=== PATIENT | female | born 1990 | race American Indian/Alaskan Native ===

== ENCOUNTER 2017-02-05 11:54 | Emergency (ER) | payer MEDICAID ==
--- NOTE | 2017-02-05 14:22 | Emergency Department Report ---
- General Chief complaint: Skin/Abscess/Foreign Body Stated complaint: POSS SPIDER BITE LT ARM /MOUTH SWELLING Time Seen by Provider: 02/05/17 13:52 Source: patient Mode of arrival: Ambulatory Limitations: No Limitations - History of Present Illness Initial comments: 26-year-old female past medical history none presents with complaint of left wrist skin redness and discomfort 2 days. Patient states she may have been bitten on skin in this area by a spider at home. Patient denies any fevers chills nausea or vomiting. Denies any direct trauma to the wrist. Visible redness overlying the distal left forearm. No obvious or overt signs of abscess formation on skin. Also states that she has noticed a small area of redness at the base of her right index finger. Areas affected are on dorsal sides MD complaint: insect bite/sting, discoloration Onset/Timin -: days(s) Location: LUE, R hand Severity: mild Severity scale (0 -10): 4 Quality: burning Consistency: intermittent - Related Data Previous Rx's Medication Instructions Recorded Last Taken Type Cephalexin [Keflex] 500 mg PO BID #14 capsule 02/05/17 Unknown Rx Ibuprofen [Motrin] 600 mg PO Q8H PRN #25 tablet 02/05/17 Unknown Rx Sulfamethoxazole/Trimethoprim 1 each PO BID #14 tablet 02/05/17 Unknown Rx [Bactrim DS TAB] Allergies Allergy/AdvReac Type Severity Reaction Status Date / Time No Known Allergies Allergy Unverified 02/05/17 12:26 Abscess Boil HPI - HPI Chief Complaint: Skin/Abscess/Foreign Body Stated Complaint: POSS SPIDER BITE LT ARM /MOUTH SWELLING Time Seen by Provider: 02/05/17 13:52 Home Medications: Previous Rx's Medication Instructions Recorded Last Taken Type Cephalexin [Keflex] 500 mg PO BID #14 capsule 02/05/17 Unknown Rx Ibuprofen [Motrin] 600 mg PO Q8H PRN #25 tablet 02/05/17 Unknown Rx Sulfamethoxazole/Trimethoprim 1 each PO BID #14 tablet 02/05/17 Unknown Rx [Bactrim DS TAB] Allergies/Adverse Reactions: Allergies Allergy/AdvReac Type Severity Reaction Status Date / Time No Known Allergies Allergy Unverified 02/05/17 12:26 ED Review of Systems ROS: Stated complaint: POSS SPIDER BITE LT ARM /MOUTH SWELLING Other details as noted in HPI Constitutional: denies: chills, fever Eyes: denies: eye pain, eye discharge, vision change ENT: denies: ear pain, throat pain Respiratory: denies: cough, shortness of breath, wheezing Cardiovascular: denies: chest pain, palpitations Endocrine: no symptoms reported Gastrointestinal: denies: abdominal pain, nausea, diarrhea Genitourinary: denies: urgency, dysuria, discharge Musculoskeletal: denies: back pain, joint swelling, arthralgia Skin: as per HPI, change in color (left distal wrist skin redness/erythema). denies: rash, lesions Neurological: denies: headache, weakness, paresthesias Psychiatric: denies: anxiety, depression Hematological/Lymphatic: denies: easy bleeding, easy bruising ED Past Medical Hx - Past Medical History Previous Medical History?: No - Surgical History Past Surgical History?: No Additional Surgical History: neuphrological surgery as child unsure - Social History Smoking Status: Never Smoker Substance Use Type: None - Medications Home Medications: Home Medications Medication Instructions Recorded Confirmed Last Taken Type Cephalexin [Keflex] 500 mg PO BID #14 capsule 02/05/17 Unknown Rx Ibuprofen [Motrin] 600 mg PO Q8H PRN #25 tablet 02/05/17 Unknown Rx Sulfamethoxazole/Trimethoprim 1 each PO BID #14 tablet 02/05/17 Unknown Rx [Bactrim DS TAB] ED Physical Exam - General Limitations: No Limitations General appearance: alert, in no apparent distress - Head Head exam: Present: atraumatic, normocephalic - Eye Eye exam: Present: normal appearance, PERRL, EOMI - ENT ENT exam: Present: mucous membranes moist - Neck Neck exam: Present: normal inspection - Respiratory Respiratory exam: Present: normal lung sounds bilaterally. Absent: respiratory distress - Cardiovascular Cardiovascular Exam: Present: regular rate, normal rhythm. Absent: systolic murmur, diastolic murmur, rubs, gallop - GI/Abdominal GI/Abdominal exam: Present: soft, normal bowel sounds - Extremities Exam Extremities exam: Present: normal inspection - Expanded Upper Extremity Exam Left Shoulder Exam: Present: normal inspection, full ROM Upper Arm exam: Present: normal inspection, full ROM Elbow exam: Present: normal inspection, full ROM Forearm Wrist exam: Present: normal inspection, full ROM Hand Wrist exam: Present: erythema (area of erythema/skin redness about 12x 15 cm on dorsal side wrist. Wrist flexion/extension fully intact) Hand L/R Back: 1 - erythema/cellultiis here Neuro motor exam: Present: wrist extension intact, thumb opposition intact, thumb IP flexion intact, thumb adduction intact, fingers 2-5 abduction intact Vascular: Present: normal capillary refill, radial pulse (distal radial pulse intact on palpation) - Back Exam Back exam: Present: normal inspection - Neurological Exam Neurological exam: Present: alert, oriented X3, CN II-XII intact, normal gait - Psychiatric Psychiatric exam: Present: normal affect, normal mood - Skin Skin exam: Present: warm, dry, intact, normal color. Absent: rash ED Course Vital Signs 02/05/17 12:26 Temperature 98.7 F Pulse Rate 90 Respiratory 16 Rate Blood Pressure 97/68 ED Medical Decision Making - Medical Decision Making A/P: Left wrist cellulitis, right index finger cellulitis 1-borders of erythema marked left wrist. Wrist range of motion flexion and extension fully intact, area affected only on dorsal aspect of left wrist. Area affected right index finger between MCP and PIP small on dorsal side only less than 2 cm. No visible abscess or palpable fluctuance in either area 2-Motrin when necessary 3-Bactrim and Keflex twice a day 7 days 4- I educated patient on signs and symptoms of cellulitis and informed her to return to the ED within 48-72 hours if symptoms worsen or she develops fever or chills or has any difficulty arranging either her left wrist or her right index finger read patient expressed clear understanding of my instructions Critical care attestation.: If time is entered above; I have spent that time in minutes in the direct care of this critically ill patient, excluding procedure time. ED Disposition Clinical Impression: Cellulitis of left upper extremity Disposition: TO HOME OR SELFCARE Is pt being admited?: No Does the pt Need Aspirin: No Condition: Stable Instructions: Cellulitis (ED) Prescriptions: Cephalexin [Keflex] 500 mg PO BID #14 capsule Ibuprofen [Motrin] 600 mg PO Q8H PRN #25 tablet PRN Reason: Pain Sulfamethoxazole/Trimethoprim [Bactrim DS TAB] 1 each PO BID #14 tablet Referrals: [facility] [Provider Group] - 3-5 Days Forms: Accompanied Note, Work/School Release Form(ED) Time of Disposition: 14:33
[2017-02-05 14:38] VITALS: BP 106/71
== END 2017-02-05 14:38 | disposition home or self-care (01) ==
LOC: ED 11:54
DX: L03.114 Cellulitis of left upper limb (principal)
CPT/HCPCS: 99282